=== PATIENT | female | born 1965 | race Caucasian/White ===

== ENCOUNTER 2019-10-04 07:21 | Outpatient (CLI) | payer OTHER, SELFPAY ==
--- NOTE | ~2019-10-04 | MM_ITS ---
EXAMINATION: MM screening [facility] w spencer HISTORY: Screening mammogram TECHNIQUE: Craniocaudal and mediolateral oblique 3-D tomosynthesis images were obtained and synthetic 2-D images were generated. CAD analysis was submitted and interpreted. COMPARISON: 09/21/2018, 09/01/2017, 08/05/2016 bilateral digital screening mammogram examinations BREAST PARENCHYMAL COMPOSITION: There are scattered areas of fibroglandular density. FINDINGS: There is no evidence of suspicious mass, calcification, or architectural distortion to sugg est malignancy in either breast. There has been no suspicious interval change. IMPRESSION: 1. No mammographic evidence of malignancy. 2. Recommend routine screening mammography in one year. BI-RADS Category 1: Negative Reviewed, dictated and finalized at location A. 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
== END 2019-10-04 07:22 | disposition home or self-care (01) ==
LOC: ANHIMG 07:25
PROVIDERS: Family Provider Obstetrics & Gynecology; PCP Family Medicine; Visit Provider Family Medicine
DX: Z12.31 Encounter for screening mammogram for malignant neoplasm of breast (principal)
CPT/HCPCS: 77063; 77067

== ENCOUNTER 2019-12-12 09:09 | Outpatient (CLI) | payer OTHER, SELFPAY ==
--- NOTE | ~2019-12-12 | XR_ITS ---
EXAMINATION: XR_CERV2-3V_CR DATE: 12/12/2019 09:37 INDICATION: Right shoulder pain. TECHNIQUE: 3 views of cervical spine were obtained. COMPARISON: None. FINDINGS: There is 6 degrees dextrocurvature of cervical spine. There is 2 mm retrolisthesis of C5 on C6. There is mild kyphosis of the cervical spine. Vertebral body heights are normal. There is modera tely decreased disc height at C5-C6 and mildly decreased disc height at C6-C7. There is multilevel un covertebral joint osteoarthritis, severe on the right at C5-C6 and bilaterally at C6-C7. There is mul tilevel mild facet joint osteoarthritis. There is mild central canal stenosis at C5-C6. No prevertebr al soft tissue swelling. IMPRESSION: 1. Moderate cervical spondylosis. Reviewed, dictated and finalized at location A.
--- NOTE | ~2019-12-12 | XR_ITS ---
EXAMINATION: XR shoulder RT min 2V DATE: 12/12/2019 09:37 INDICATION: Right shoulder pain. TECHNIQUE: 4 views of right shoulder were obtained. COMPARISON: None. FINDINGS: Bone alignment is normal. No fracture. The glenohumeral joint is normal. There is mild acro mioclavicular joint osteoarthritis. IMPRESSION: 1. Mild right acromioclavicular joint osteoarthritis. Reviewed, dictated and finalized at location A.
== END 2019-12-12 09:10 | disposition home or self-care (01) ==
PROVIDERS: PCP Family Medicine; Visit Provider Nurse Practitioner Family
DX: M47.892 Other spondylosis, cervical region (principal); M19.011 Primary osteoarthritis, right shoulder
CPT/HCPCS: 72040; 73030

== ENCOUNTER 2020-10-16 09:32 | Outpatient (CLI) | payer OTHER, SELFPAY ==
--- NOTE | ~2020-10-16 | DEXA_ITS ---
Bone Density Report Name: Brigid Kat Age: 55 Sex: Female Ethnicity: White Date of : 1965 Indication: postmenopausal; prior fracture; hysterectomy; Referring Provider: Jesus Castañeda Study: Bone densitometry was performed. Exam Date: October 16, 2020 Accession number: [id number] Bone Density: Region BMD T-score Z-score Classification AP Spine (L1-L4) 1.003 -0.4 0.8 Normal Femoral Neck (Left) 0.651 -1.8 -0.6 Osteopenia Total Hip (Left) 0.908 -0.3 0.5 Normal Total Hip Bilateral Avg 0.923 -0.2 0.6 Normal Femoral Neck (Right) 0.710 -1.3 -0.1 Osteopenia Total Hip (Right) 0.937 0.0 0.7 Normal World Health Organization criteria for BMD impression classify patients as: Normal (T-score at or above -1.0), Osteopenia (T-score between -1.0 and -2.5), or Osteoporosis (T-score at or below -2.5). 10-year Fracture Risk(1): Major Osteoporotic Fracture 13% Hip Fracture 1.3% Reported Risk Factors: [place] (), Neck BMD=0.651, BMI=30.7, previous fracture (1) FRAX(R) Version 3.08. Fracture probability calculated for an untreated patient. Fracture probability may be lower if the patient has received treatment. Previous Exams: Region Exam Age BMD T-score BMD Change BMD Change Date g/cm2 vs Baseline vs Previous AP Spine(L1-L4) 10/16/2020 55 1.003 -0.4 0.014(1.4%)# -0.034(-3.3%)# 09/21/2018 52 1.037 -0.1 0.048(4.9%)# 0.043(4.3%)* 08/05/2016 50 0.994 -0.5 0.006(0.6%)# 0.065(7.0%)* 07/20/2014 48 0.929 -1.1 -0.059(-6.0%)# 0.057(6.5%)# 07/13/2012 46 0.873 -1.6 -0.116(-11.7%) -0.116(-11.7%) 06/25/2010 44 0.989 -0.5 Total Hip(Left) 10/16/2020 55 0.908 -0.3 0.009(1.0%)# -0.097(-9.6%)# 09/21/2018 52 1.005 0.5 0.106(11.7%)# 0.100(11.0%)* 08/05/2016 50 0.905 -0.3 0.006(0.6%)# 0.017(1.9%) 07/20/2014 48 0.888 -0.4 -0.011(-1.2%)# 0.024(2.8%)# 07/13/2012 46 0.864 -0.6 -0.035(-3.9%)# -0.035(-3.9%)# 06/25/2010 44 0.899 -0.3 Total Hip(Right) 10/16/2020 55 0.937 0.0 0.000(0.0%)# -0.097(-9.4%)# 09/21/2018 52 1.034 0.8 0.097(10.3%)# 0.107(11.5%)* 08/05/2016 50 0.927 -0.1 -0.010(-1.1%)# 0.016(1.7%) 07/20/2014 48 0.911 -0.3 -0.026(-2.8%)# 0.060(7.0%)# 07/13/2012 46 0.851 -0.7 -0.086(-9.2%)# -0.086(-9.2%)# 06/25/2010 44 0.937 0.0 *Denotes significance at 95% confidence level, LSC for AP Spine = 0.022 g/cm2, LSC for Total Hip = 0.027 g/cm2 Clinical Information Provided by Patient:
--- NOTE | ~2020-10-16 | MM_ITS ---
EXAMINATION: MM screening [facility] BI w spencer HISTORY: Screening mammogram TECHNIQUE: Craniocaudal and mediolateral oblique 3-D tomosynthesis images were obtained and synthetic 2-D images were generated. CAD analysis was submitted and interpreted. COMPARISON: 10/04/2019, 09/21/2018, 09/01/2017 BREAST PARENCHYMAL COMPOSITION: The breasts are almost entirely fatty. FINDINGS: There is no evidence of suspicious mass, calcification, or architectural distortion to sugg est malignancy in either breast. There has been no suspicious interval change. IMPRESSION: 1. No mammographic evidence of malignancy. 2. Recommend routine screening mammography in one year. BI-RADS Category 1: Negative Reviewed, dictated and finalized at location A. 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
== END 2020-10-16 09:33 | disposition home or self-care (01) ==
PROVIDERS: PCP Family Medicine; Visit Provider Family Medicine
DX: Z12.31 Encounter for screening mammogram for malignant neoplasm of breast (principal); M85.852 Other specified disorders of bone density and structure, left thigh; M85.851 Other specified disorders of bone density and structure, right thigh
CPT/HCPCS: 77063; 77067; 77080

== ENCOUNTER 2021-11-30 09:23 | Outpatient (CLI) | payer OTHER, SELFPAY ==
--- NOTE | ~2021-11-30 | MM_ITS ---
EXAMINATION: MM screening [facility] w spencer HISTORY: Screening TECHNIQUE: Craniocaudal and mediolateral oblique 3-D tomosynthesis images were obtained and synthetic 2-D images were generated. CAD analysis was submitted and interpreted. COMPARISON: Comparison to multiple prior studies sequentially, with oldest reviewed study dated 06/29. BREAST PARENCHYMAL COMPOSITION: The breasts are almost entirely fatty. FINDINGS: There is no evidence of suspicious mass, calcification, or architectural distortion to sugg est malignancy in either breast. There has been no suspicious interval change. IMPRESSION: 1. No mammographic evidence of malignancy. 2. Recommend routine screening mammography in one year. BI-RADS Category 1: Negative Reviewed, dictated and finalized at location A.
== END 2021-11-30 09:24 | disposition home or self-care (01) ==
LOC: ANHIMG 09:25
PROVIDERS: PCP Family Medicine; Visit Provider Family Medicine
DX: Z12.31 Encounter for screening mammogram for malignant neoplasm of breast (principal)
CPT/HCPCS: 77063; 77067

== ENCOUNTER 2023-01-06 08:35 | Outpatient (CLI) | payer OTHER, SELFPAY ==
--- NOTE | ~2023-01-06 | MM_ITS ---
EXAMINATION: MM screening [facility] BI w spencer HISTORY: Screening mammogram TECHNIQUE: Craniocaudal and mediolateral oblique 3-D tomosynthesis images were obtained and synthetic 2-D images were generated. CAD analysis was submitted and interpreted. COMPARISON: 11/30/2021, 10/16/2020, 10/04/2019 BREAST PARENCHYMAL COMPOSITION: The breasts are almost entirely fatty. FINDINGS: No suspicious mass, calcification, or architectural distortion are identified in either tiera ast to suggest malignancy. There has been no suspicious interval change. IMPRESSION: 1. No mammographic evidence of malignancy. 2. Recommend routine screening mammography in one year. BI-RADS Category 1: Negative Reviewed, dictated and finalized at location A.
--- NOTE | ~2023-01-06 | DEXA_ITS ---
Bone Density Report Name: SHY JAMISON Age: 57 Sex: Female Ethnicity: White Date of : 1965 Indication: postmenopausal; screening for osteoporosis; prior fracture; hysterectomy; Referring Provider: LAURIE YEBOAH Study: Bone densitometry was performed. Exam Date: January 06, 2023 Accession number: [id number] Bone Density: Region BMD T-score Z-score Classification AP Spine(L1-L4) 1.024 -0.2 1.2 Normal Femoral Neck (Left) 0.676 -1.6 -0.3 Osteopenia Total Hip (Left) 0.890 -0.4 0.5 Normal Femoral Neck (Right) 0.716 -1.2 0.0 Osteopenia Total Hip (Right) 0.906 -0.3 0.6 Normal Total Hip Mean 0.898 -0.4 0.6 Normal World Health Organization criteria for BMD impression classify patients as: Normal (T-score at or above -1.0), Osteopenia (T-score between -1.0 and -2.5), or Osteoporosis (T-score at or below -2.5). 10-year Fracture Risk(1): Major Osteoporotic Fracture 13% Hip Fracture 1.1% Reported Risk Factors: [place] (), Neck BMD=0.676, BMI=31.6, previous fracture (1) FRAX(R) Version 3.08. Fracture probability calculated for an untreated patient. Fracture probability may be lower if the patient has received treatment. Previous Exams: Region Exam Age BMD T-score BMD Change BMD Change Date g/cm2 vs Baseline vs Previous AP Spine (L1-L4) 01/06/2023 57 1.024 -0.2 0.095 (10.2%)* 0.021 (2.1%)# 10/16/2020 55 1.003 -0.4 0.074 (7.9%)# -0.034 (-3.3%) 09/21/2018 52 1.037 -0.1 0.108 (11.6%)* 0.043 (4.3%)* 08/05/2016 50 0.994 -0.5 0.065 (7.0%)* 0.065 (7.0%)* 07/20/2014 48 0.929 -1.1 Total Hip(Left) 01/06/2023 57 0.890 -0.4 0.001 (0.2%) -0.018 (-2.0%) 10/16/2020 55 0.908 -0.3 0.020 (2.2%)# -0.097 (-9.6%) 09/21/2018 52 1.005 0.5 0.117 (13.1%)* 0.100 (11.0%)* 08/05/2016 50 0.905 -0.3 0.017 (1.9%) 0.017 (1.9%) 07/20/2014 48 0.888 -0.4 Total Hip(Right) 01/06/2023 57 0.906 -0.3 -0.005 (-0.6%) -0.031 (-3.3%) 10/16/2020 55 0.937 0.0 0.026 (2.9%)# -0.097 (-9.4%) 09/21/2018 52 1.034 0.8 0.123 (13.5%)* 0.107 (11.5%)* 08/05/2016 50 0.927 -0.1 0.016 (1.7%) 0.016 (1.7%) 07/20/2014 48 0.911 -0.3 *Denotes significance at 95% confidence level, LSC for AP Spine = 0.022 g/cm2, LSC for Total Hip = 0.027 g/cm2 # Denotes dissimilar scan types or analysis methods Clinical Information Provided by Patient: Has had a low trauma fracture Has used the following medications: Vitamin D, Calcium
== END 2023-01-06 08:36 | disposition home or self-care (01) ==
LOC: ANHIMG 08:37
PROVIDERS: PCP Family Medicine; Visit Provider Nurse Practitioner Family
DX: Z12.31 Encounter for screening mammogram for malignant neoplasm of breast (principal); Z78.0 Asymptomatic menopausal state; M85.852 Other specified disorders of bone density and structure, left thigh; M85.851 Other specified disorders of bone density and structure, right thigh
CPT/HCPCS: 77063; 77067; 77080

== ENCOUNTER 2023-01-29 17:18 | Outpatient (CLI) | payer OTHER, SELFPAY ==
[2023-01-29 18:07] LABS: Alanine Aminotransferase 29 U/L (6-35); Creatine Kinase 99 U/L (30-135)
== END 2023-01-29 17:19 | disposition home or self-care (01) ==
LOC: ANHLAB 17:19
PROVIDERS: PCP Family Medicine; Visit Provider Nurse Practitioner Family
DX: E78.2 Mixed hyperlipidemia (principal)
CPT/HCPCS: 36415; 82550; 84460

== ENCOUNTER 2023-08-30 16:39 | Outpatient (CLI) | payer OTHER, SELFPAY ==
--- NOTE | ~2023-08-30 | XR_ITS ---
XR chest 2V DATE: 08/30/2023 17:01 INDICATION: Cough and chest pain for 2 days. TECHNIQUE: PA and lateral views COMPARISON: None FINDINGS: Plate and screws of proximal right humerus. Normal heart size. Moderate sized hiatal hernia. No hilar or mediastinal enlargement. There is mild discoid atelectasis or scarring in the left lower lung. No pulmonary consolidation, ple ural effusion, pulmonary vascular congestion or pneumothorax is detected. IMPRESSION: Mild discoid atelectasis or scarring, left lower lung; no active cardiopulmonary disease Moderate hiatal hernia Reviewed, dictated and finalized at location L. 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
== END 2023-08-30 16:40 | disposition home or self-care (01) ==
LOC: ANHIMG 16:48
PROVIDERS: PCP Family Medicine; Visit Provider Nurse Practitioner Family
DX: R05.9 Cough, unspecified (principal); K44.9 Diaphragmatic hernia without obstruction or gangrene; R91.8 Other nonspecific abnormal finding of lung field
CPT/HCPCS: 71046

== ENCOUNTER 2024-02-02 08:13 | Outpatient (CLI) | payer OTHER, SELFPAY ==
--- NOTE | ~2024-02-02 | MM_ITS ---
EXAMINATION: MM screening [facility] BI w spencer HISTORY: Screening mammogram TECHNIQUE: Craniocaudal and mediolateral oblique 3-D tomosynthesis images were obtained and synthetic 2-D images were generated. CAD analysis was submitted and interpreted. COMPARISON: 01/06/2023, 11/30/2021 bilateral screening mammogram examinations BREAST PARENCHYMAL COMPOSITION: The breasts are almost entirely fatty. FINDINGS: There is no evidence of suspicious mass, calcification, or architectural distortion to sugg est malignancy in either breast. There has been no suspicious interval change. IMPRESSION: 1. No mammographic evidence of malignancy. 2. Recommend routine screening mammography in one year. BI-RADS Category 1: Negative Reviewed, dictated and finalized at location A.
== END 2024-02-02 08:14 ==
PROVIDERS: PCP Family Medicine; Visit Provider Family Medicine
DX: Z12.31 Encounter for screening mammogram for malignant neoplasm of breast (principal)
CPT/HCPCS: 77063; 77067

== ENCOUNTER 2024-07-17 10:53 | Outpatient (CLI) | payer OTHER, SELFPAY ==
[2024-07-17 11:23] LABS: Hematocrit 43.7 % (37.0-47.0); Hemoglobin 14.5 g/dL (12.0-15.0); Mean Corpuscular HGB Conc 33.2 g/dl (32-36); Mean Corpuscular Hemoglobin 30.7 pg (26-34); Mean Corpuscular Volume 92.4 fl (80-100); Mean Platelet Volume 10.1 fl (7.4-10.4); Platelet Count Result 202 k/mm3 (150-375); Red Blood Count 4.73 M/mm3 (4.2-5.4); Red Cell Distribution Width 12.5 % (11.5-14.5); White Blood Count 5.2 K/mm3 (4.5-10.0)
[2024-07-17 23:57] LABS: Alanine Aminotransferase 28 U/L (6-35); Albumin Level 4.4 g/dL (3.5-5.1); Alkaline Phosphatase 64 U/L (38-126); Anion Gap 7 mmol/L (4-12); Aspartate Amino Transferase 25 U/L (14-36); Bilirubin,Total 0.4 mg/dL (0.2-1.3); Blood Urea Nitrogen 17 mg/dL (7-17); Calcium 9.3 mg/dL (8.4-10.2); Carbon Dioxide 25 mmol/L (22-30); Chloride 106 mmol/L (98-107); Cholesterol 247 mg/dL (0-200); Estimated Glomerular Filt Rate > 60; Free T4 Free Thyroxine 0.95 ng/mL (0.78-2.19); Glucose 95 mg/dL (65-110); HDL Direct 67 mg/dL; LDL Cholesterol Direct 134 mg/dL; Potassium 3.9 mmol/L (3.4-5.0); Sodium 138 mmol/L (137-145); Triglycerides 114 mg/dL (<150); Vitamin D 25 Hydroxy 21.5 ng/mL
== END 2024-07-17 10:54 | disposition home or self-care (01) ==
LOC: ANHLAB 10:55
PROVIDERS: PCP Family Medicine; Visit Provider Family Medicine
DX: Z13.220 Encounter for screening for lipoid disorders (principal); E78.2 Mixed hyperlipidemia; K25.3 Acute gastric ulcer without hemorrhage or perforation; E55.9 Vitamin D deficiency, unspecified; E03.9 Hypothyroidism, unspecified
CPT/HCPCS: 36415; 80048; 80061; 80076; 82306; 84439; 84443; 85027

== ENCOUNTER 2025-06-12 07:16 | Outpatient (CLI) | payer OTHER, SELFPAY ==
--- NOTE | ~2025-06-12 | DEXA_ITS ---
Bone Density Report Name: SHY JAMISON Age: 59 Sex: Female Ethnicity: White Date of : 1965 Indication: postmenopausal; screening for osteoporosis; hysterectomy; Referring Provider: LAURIE YEBOAH Study: Bone densitometry was performed. Exam Date: June 12, 2025 Accession number: [id number] Bone Density: Region BMD T-score Z-score Classification AP Spine(L1-L4) 1.039 -0.1 1.5 Normal Femoral Neck (Left) 0.677 -1.6 -0.2 Osteopenia Total Hip (Left) 0.917 -0.2 0.8 Normal Femoral Neck (Right) 0.677 -1.6 -0.2 Osteopenia Total Hip (Right) 0.912 -0.2 0.8 Normal Femoral Neck Mean 0.677 -1.6 -0.2 Osteopenia Total Hip Mean 0.914 -0.2 0.8 Normal World Health Organization criteria for BMD impression classify patients as: Normal (T-score at or above -1.0), Osteopenia (T-score between -1.0 and -2.5), or Osteoporosis (T-score at or below -2.5). 10-year Fracture Risk(1): Major Osteoporotic Fracture 8.3% Hip Fracture 0.7% Reported Risk Factors: [place] (), Neck BMD=0.677, BMI=28.4 (1) FRAX(R) Version 3.08. Fracture probability calculated for an untreated patient. Fracture probability may be lower if the patient has received treatment. Clinical Information Provided by Patient: Has used the following medications: Fosamax (i.e. alendronate) Has the following medical conditions: Hysterectomy Patient maximum height was 66 Menopause Age: 39 Does not regularly consume dairy products Drinks caffeinated beverages Onset of menses at age 10 Number of children 2 Impression: The patient has low bone mass, based on the Left Femoral Neck T-score. Discussion: BONE DENSITY IS LOW AT ONE OR MORE SKELETAL SITES. This patient's lowest T-score is low at one or more skeletal sites. It meets the World Health Organization's (WHO) criteria for ?low bone mass? (T-score between -1.0 and -2.5). The patient's 10-year risk of fracture as calculated by FRAX is less than the threshold where pharmacological therapy is recommended by the National Osteoporosis Foundation (NOF). However, all treatment decisions require clinical judgment and consideration of individual patient factors, including patient preferences, comorbidities, previous drug use, risk factors not captured in the FRAX model (e.g., frailty, falls, vitamin D deficiency, increased bone turnover, interval significant decline in bone density) and possible under or overestimation of fracture risk by FRAX. The patient should follow a healthful lifestyle (good nutrition with adequate calcium and vitamin D, and appropriate weight-bearing exercise). Follow-Up: Consider repeating this study in 2 to 3 years to reassess this patient's status, or sooner if there is some new clinical indication. Reported by: DAQUAN on 06/12/2025 7:47:00 AM. Reviewed, dictated and finalized at location A.
--- NOTE | ~2025-06-12 | MM_ITS ---
EXAMINATION: MM screening [facility] BI w spencer HISTORY: Screening TECHNIQUE: Craniocaudal and mediolateral oblique 3-D tomosynthesis images were obtained and synthetic 2-D images were generated. CAD analysis was submitted and interpreted. COMPARISON: 02/02/2024 BREAST PARENCHYMAL COMPOSITION: Not Dense: The breasts are almost entirely fatty. FINDINGS: There is no evidence of suspicious mass, calcification, or architectural distortion to suggest malignancy in either breast. [There has been no significant interval change. IMPRESSION: 1. No mammographic evidence of malignancy. Recommend routine screening mammography in one year. BI-RADS Category 1: Negative Reviewed, dictated, and finalized at Location A. Reviewed, dictated and finalized at location Q. IMPRESSION: 1. No mammographic evidence of malignancy. Recommend routine screening mammogra phy in one year. BI-RADS Category 1: Negative
--- NOTE | ~2025-06-12 | XR_ITS ---
EXAMINATION: XR shoulder RT min 2V, 06/12/2025 7:43 CDT HISTORY: Primary osteoarthritis, Rt. shoulder COMPARISON: No comparisons available. Findings: Fixation of the right humerus, the hardware is intact. Moderate degenerative changes. Soft tissues unremarkable. Impression: No acute fracture or malalignment. Reviewed, dictated and finalized at location P. Impression: No acute fracture or malalignment.
== END 2025-06-12 07:17 | disposition home or self-care (01) ==
PROVIDERS: PCP Family Medicine; Visit Provider Nurse Practitioner Family
DX: Z12.31 Encounter for screening mammogram for malignant neoplasm of breast (principal); M19.019 Primary osteoarthritis, unspecified shoulder; Z91.89 Other specified personal risk factors, not elsewhere classified; Z78.0 Asymptomatic menopausal state; M19.011 Primary osteoarthritis, right shoulder; M85.89 Other specified disorders of bone density and structure, multiple sites
CPT/HCPCS: 73030; 77063; 77067; 77080